=== PATIENT | female | born 1930 | race Caucasian/White ===

== ENCOUNTER 2020-06-22 10:29 | Emergency (ER) | payer MEDICARE, OTHER ==
[~2020-06-22] VITALS: Ht 165.1 cm; Wt 64.4 kg
--- NOTE | 2020-06-22 10:29 | NUR ---
[facility] Finger swollen, noted deformed L ring finger, to ER bed 11, hooked to monitor. veterinarian small animal at bedside. Dr Ohara at bedside for eval
[2020-06-22] MEDS ORDERED: LIDOCAINE 1% INJ 50 ML MDV IJ ONE (10:53)
[2020-06-22] MEDS ORDERED: LIDOCAINE 1%-EPI 1:100,000 20 ML VIAL ONE (10:58)
--- NOTE | 2020-06-22 10:58 | NUR ---
DR CARLOS AT BEDSIDE TO NUMB L RING FINGER
[2020-06-22] MEDS ORDERED: LIDOCAINE HCL/PF 1% 30 ML VIAL TP ONE (11:00)
--- NOTE | 2020-06-22 11:36 | NUR ---
CALLED [facility] TO TRANSPORT TO [facility]. ETA 60 MINUTES.
--- NOTE | 2020-06-22 13:20 | NUR ---
[facility] Written and verbal after care instructions given. 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 Patient will be brought back to [facility]
[2020-06-22 13:21] VITALS: BP 124/68
== END 2020-06-22 13:21 | disposition home or self-care (01) ==
LOC: ER 10:29
DX: S63.285A Dislocation of proximal interphalangeal joint of left ring finger, initial encounter (principal); F03.90 Unspecified dementia, unspecified severity, without behavioral disturbance, psychotic disturbance, mood disturbance, and anxiety; I12.9 Hypertensive chronic kidney disease with stage 1 through stage 4 chronic kidney disease, or unspecified chronic kidney disease; N18.9 Chronic kidney disease, unspecified; X58.XXXA Exposure to other specified factors, initial encounter; Y93.89 Activity, other specified; Y92.89 Other specified places as the place of occurrence of the external cause; Y99.8 Other external cause status
CPT/HCPCS: 26770; 73140; 99284; J3490 ×2